=== PATIENT | female | born 1995 | race Caucasian/White ===

== ENCOUNTER → 2017-10-19 | Outpatient (CLI) | payer MEDICAID ==
[~2017-10-19] MED LIST: ALB0.5 INH; ALB6.7R INH; CEP250 PO; CETI-459 PO; FLUINH INH; PHEN240S3 PO; TRAZ50 PO; [UNRECOGNIZED DRUG - CODE] TOP
--- NOTE | 2017-10-19 16:32 | RADIOLOGY IMAGING REPORT ---
FACILITY: [facility] PATIENT NAME: Indira Agarwal : 1995 MR: [id number] V: [id number] EXAM DATE: ORDERING PHYSICIAN: [facility] TECHNOLOGIST: Location: [facility] Patient: Indira Agarwal : 1995 Visit/Account:[id number] Date of Sevice: 10/19/2017 EXAMINATION: Transvaginal pelvic ultrasound with duplex Doppler evaluation 10/19/2017 3:00 PM HISTORY: Confirm absence of IUP. 09/30/2017 COMPARISON STUDIES: Pelvic ultrasound 11/08/2013 FINDINGS: Uterus: 9.0 x 4.0 x 5.8 cm Myometrium: negative Endometrium: 10 mm thickness. No intrauterine gestational sac. No residual defined products of preg kaitlin. Cervix: negative Ovaries: right ovary 3.0 x 3.2 x 2.2 cm, left ovary 2.3 x 1.8 x 1.2 cm, simple and functional appeari ng cyst in the right ovary measures 1.8 x 1.7 x 2.1 cm. Blood flow is documented in each ovary by Doppler ultrasound. Adnexa: negative Free pelvic fluid: none IMPRESSION: Unremarkable transvaginal pelvic ultrasound. No intrauterine gestation or retained products of gesta tion are demonstrated. Report Dictated By: Bob Malave MD at 10/19/2017 4:24 PM Report E-Signed By: Bob Malave MD at 10/19/2017 4:27 PM WSN:[id number]
== END ==
LOC: US 14:57
PROVIDERS: ATTEND Obstetrics & Gynecology
DX: Z33.2 Encounter for elective termination of pregnancy (principal)
CPT/HCPCS: 76830

== ENCOUNTER 2018-03-14 18:40 | Emergency (ER) | payer SELFPAY ==
--- NOTE | 2018-03-14 18:52 | ER Report ---
History and Physical Time Seen By MD: 18:52 Hx. of Stated Complaint: Patient complains of abdominal pain that started 3 days prior. states she has been feeling "generally sick" for a few weeks now HPI/ROS CHIEF COMPLAINT: Abdominal pain HISTORY OF PRESENT ILLNESS: 22-year-old female patient presents to emergency room with complaint of abdominal pain. Patient states that she has not been feeling well for the past few weeks. She states she's had, some generalized abdominal pain over the last 3 days. She states that the pain seems to come and go. She states when the pain is there seems to radiate right up the middle of her abdomen. She denies having any fevers, chills but states she has had some nausea and vomiting. She states that she is not taking any medication for this. She states her last menses was January 19. She states that she did have intercourse one time during that time, however she did have an in September and states that her menstrual cycles have not been regular since that time. REVIEW OF SYSTEMS: Respiratory: No cough, no dyspnea. Cardiovascular: No chest pain, no palpitations. Gastrointestinal: As noted above Musculoskeletal: No back pain. Allergies: Coded Allergies: No Known Drug Allergies (Verified , 03/14/18) Uncoded Allergies: mushrooms (Allergy, Intermediate, NAUSEA/VOMITING, 12/23/09) HORSES (Allergy, Mild, 08/07/08) Home Meds Active Scripts Vits W-Ca,Fe,Fa(<1MG) ( VITAMINS) 1 Each Tablet, 1 EACH PO DAILY, #30 TAB Prov:[facility] 03/14/18 Nitrofurantoin Monohyd/M-Cryst (MACROBID 100 MG CAPSULE) 100 Mg Capsule, 100 MG PO BID, #12 CAPSULE Prov:[facility] 03/14/18 Reported Medications Fluticasone Propionate (Flovent Hfa 110 Mcg) 12 Gm Aer.w.adap, 1 PUFF INH BID, 0 Refills 12/30/09 Albuterol Sulfate (Proventil Hfa) 6.7 Gm Aer.w.adap, 1-2 PUFF INH, 0 Refills 12/30/09 Discontinued Reported Medications Cetirizine Hcl (Zyrtec) 10 Mg Tablet, 10 MG PO QDAY, 0 Refills 12/30/09 Mometasone Furoate (Elocon 0.1% Cream) 15 Gm Cr, 0 TOP BID, 0 Refills APPLY 12/30/09 Past Medical/Surgical History Patient has a past medical history of angina, asthma, pneumonia, eczema. Patient has a surgical history of oral surgery. Reviewed Nurses Notes: Yes Hx Smoking: No Smoking Status: Never Smoker Constitutional Vital Sign - Last 24 Hours 03/14/18 03/14/18 03/14/18 03/14/18 18:47 18:47 19:00 19:10 Temp 98.7 Pulse 86 62 Resp 15 B/P (MAP) 130/74 (92) 130/74 117/87 (97) Pulse Ox 96 96 O2 Delivery Room Air 03/14/18 03/14/18 03/14/18 03/14/18 19:30 19:35 19:50 20:00 Pulse 63 70 B/P (MAP) 106/69 (81) 111/62 (78) Pulse Ox 97 96 03/14/18 03/14/18 03/14/18 03/14/18 20:05 20:20 20:30 20:35 Pulse 65 73 62 B/P (MAP) 104/69 (81) Pulse Ox 97 97 97 03/14/18 20:40 Pulse ??? Pulse Ox 95 Physical Exam General Appearance: The patient is alert, has no immediate need for airway protection and no current signs of toxicity. Respiratory: Chest is non tender, lungs are clear to auscultation. Cardiac: regular rate and rhythm Gastrointestinal: Abdomen is soft and non tender, no masses, bowel sounds normal. Musculoskeletal: Neck: Neck is supple and non tender. Extremities have full range of motion and are non tender. Skin: No rashes or lesions. DIFFERENTIAL DIAGNOSIS: After history and physical exam differential diagnosis was considered for abdominal pain including but not limited to appendicitis, cholecystitis, gastritis and urinary tract infection. Included in the differential is . Medical Decision Making Data Points Result Diagram: 03/14/182 03/14/182 Laboratory Hematology Test 03/14/18 18:52 Red Blood Count 5.54 M/uL (4.17-5.56) Mean Corpuscular Volume 82.8 fL (80.0-96.0) Mean Corpuscular Hemoglobin 28.3 pg (26.0-33.0) Mean Corpuscular Hemoglobin Concent 34.2 g/dL (32.0-36.0) Red Cell Distribution Width 14.1 % (11.5-14.5) Mean Platelet Volume 9.4 fL (7.2-11.1) Neutrophils (%) (Auto) 67.2 % (39.4-72.5) Lymphocytes (%) (Auto) 23.6 % (17.6-49.6) Monocytes (%) (Auto) 7.3 % (4.1-12.4) Eosinophils (%) (Auto) 1.0 % (0.4-6.7) Basophils (%) (Auto) 0.9 % (0.3-1.4) Nucleated RBC Relative Count (auto) 0.0 /100WBC Neutrophils # (Auto) 8.7 K/uL (2.0-7.4) Lymphocytes # (Auto) 3.0 K/uL (1.3-3.6) Monocytes # (Auto) 0.9 K/uL (0.3-1.0) Eosinophils # (Auto) 0.1 K/uL (0.0-0.5) Basophils # (Auto) 0.1 K/uL (0.0-0.1) Nucleated RBC Absolute Count (auto) 0.00 K/uL Urine Color Yellow Urine Clarity Slightly-cloudy Urine pH 5.0 pH (4.8-9.5) Urine Specific [place] 1.024 Urine Protein Negative mg/dL (NEGATIVE) Urine Glucose (UA) Negative mg/dL (NEGATIVE) Urine Ketones Trace mg/dL (NEGATIVE) Urine Blood Negative (NEGATIVE) Urine Nitrite Negative (NEGATIVE) Urine Bilirubin Negative (NEGATIVE) Urine Urobilinogen Negative mg/dL (0.2-1.9) Urine Leukocyte Esterase Moderate (NEGATIVE) Urine RBC 1 /HPF (0-2/HPF) Urine WBC 19 /HPF (0-5/HPF) Urine Squamous Epithelial Cells Many /LPF (</=FEW) Urine Bacteria Negative /HPF (NONE-FEW) Urine Mucus Few /HPF (NONE-FEW) Sodium Level 137 mmol/L (137-145) Potassium Level 3.6 mmol/L (3.5-5.0) Chloride Level 101 mmol/L (98-107) Carbon Dioxide Level 21 mmol/L (22-31) Blood Urea Nitrogen 9 mg/dl (7-18) Creatinine 0.50 mg/dl (0.52-1.04) Glomerular Filtration Rate Calc > 60.0 Random Glucose 92 mg/dl (75-110) Calcium Level 9.5 mg/dl (8.4-10.2) Total Bilirubin 0.9 mg/dl (0.2-1.3) Aspartate Amino Transf (AST/SGOT) 18 U/L (0-35) Alanine Aminotransferase (ALT/SGPT) 24 U/L (0-56) Alkaline Phosphatase 52 U/L (0-126) C-Reactive Protein < 0.5 mg/dl (<1.0) Total Protein 8.7 g/dl (6.3-8.2) Albumin 4.7 g/dl (3.5-5.0) Amylase Level 106 U/L (0-110) Lipase 84 U/L (23-300) Human Chorionic Gonadotropin, Qual Positive (NEGATIVE) Chemistry Test 03/14/18 18:52 White Blood Count 12.9 k/uL (4.5-11.0) Red Blood Count 5.54 M/uL (4.17-5.56) Hemoglobin 15.7 g/dL (12.0-16.0) Hematocrit 45.9 % (34.0-47.0) Mean Corpuscular Volume 82.8 fL (80.0-96.0) Mean Corpuscular Hemoglobin 28.3 pg (26.0-33.0) Mean Corpuscular Hemoglobin Concent 34.2 g/dL (32.0-36.0) Red Cell Distribution Width 14.1 % (11.5-14.5) Platelet Count 334 K/uL (150-450) Mean Platelet Volume 9.4 fL (7.2-11.1) Neutrophils (%) (Auto) 67.2 % (39.4-72.5) Lymphocytes (%) (Auto) 23.6 % (17.6-49.6) Monocytes (%) (Auto) 7.3 % (4.1-12.4) Eosinophils (%) (Auto) 1.0 % (0.4-6.7) Basophils (%) (Auto) 0.9 % (0.3-1.4) Nucleated RBC Relative Count (auto) 0.0 /100WBC Neutrophils # (Auto) 8.7 K/uL (2.0-7.4) Lymphocytes # (Auto) 3.0 K/uL (1.3-3.6) Monocytes # (Auto) 0.9 K/uL (0.3-1.0) Eosinophils # (Auto) 0.1 K/uL (0.0-0.5) Basophils # (Auto) 0.1 K/uL (0.0-0.1) Nucleated RBC Absolute Count (auto) 0.00 K/uL Urine Color Yellow Urine Clarity Slightly-cloudy Urine pH 5.0 pH (4.8-9.5) Urine Specific [place] 1.024 Urine Protein Negative mg/dL (NEGATIVE) Urine Glucose (UA) Negative mg/dL (NEGATIVE) Urine Ketones Trace mg/dL (NEGATIVE) Urine Blood Negative (NEGATIVE) Urine Nitrite Negative (NEGATIVE) Urine Bilirubin Negative (NEGATIVE) Urine Urobilinogen Negative mg/dL (0.2-1.9) Urine Leukocyte Esterase Moderate (NEGATIVE) Urine RBC 1 /HPF (0-2/HPF) Urine WBC 19 /HPF (0-5/HPF) Urine Squamous Epithelial Cells Many /LPF (</=FEW) Urine Bacteria Negative /HPF (NONE-FEW) Urine Mucus Few /HPF (NONE-FEW) Glomerular Filtration Rate Calc > 60.0 Calcium Level 9.5 mg/dl (8.4-10.2) Total Bilirubin 0.9 mg/dl (0.2-1.3) Aspartate Amino Transf (AST/SGOT) 18 U/L (0-35) Alanine Aminotransferase (ALT/SGPT) 24 U/L (0-56) Alkaline Phosphatase 52 U/L (0-126) C-Reactive Protein < 0.5 mg/dl (<1.0) Total Protein 8.7 g/dl (6.3-8.2) Albumin 4.7 g/dl (3.5-5.0) Amylase Level 106 U/L (0-110) Lipase 84 U/L (23-300) Human Chorionic Gonadotropin, Qual Positive (NEGATIVE) Urinalysis Test 03/14/18 18:52 Urine Color Yellow Urine Clarity Slightly-cloudy Urine pH 5.0 pH (4.8-9.5) Urine Specific [place] 1.024 Urine Protein Negative mg/dL (NEGATIVE) Urine Glucose (UA) Negative mg/dL (NEGATIVE) Urine Ketones Trace mg/dL (NEGATIVE) Urine Blood Negative (NEGATIVE) Urine Nitrite Negative (NEGATIVE) Urine Bilirubin Negative (NEGATIVE) Urine Urobilinogen Negative mg/dL (0.2-1.9) Urine Leukocyte Esterase Moderate (NEGATIVE) Urine RBC 1 /HPF (0-2/HPF) Urine WBC 19 /HPF (0-5/HPF) Urine Squamous Epithelial Cells Many /LPF (</=FEW) Urine Bacteria Negative /HPF (NONE-FEW) Urine Mucus Few /HPF (NONE-FEW) ED Course/Re-evaluation ED Course Patient was admitted to an exam room, history and physical were obtained. Differential diagnoses were considered. On examination lungs are clear, heart is regular, abdomen is soft nontender. A CBC, CMP, urinalysis, hCG were obtained. Patient had a white count of 12.9 with no left shift, CMP is unremarkable, urinalysis did show a moderate leukocyte esterase with 19 white blood cells per high-power field. Patient was positive for . I discussed the findings with the patient. As I was discussing the findings I asked her about the father. She states they're not in a relationship and she states that he is an older gentleman who helps her out. She states that she talks to him only when she needs help. She states that they had intercourse on February 01, with her stating that he had taken her to see her father, had brought her food and she did feel obligated. I asked her if she would feel comfortable with the [facility] nurse talking with her. She states that she did. Tatyana Izquierdo RN did speak with the patient and discussed resources for her. She states that she does feel better. We will go ahead and treat her with antibiotics for tonight and tomorrow morning, a prescription for the remainder of the antibiotics for sent into pharmacy. Also sent and vitamins I would like her to get started on that tomorrow. I discussed this with the patient who verbalized understanding and agreement with plan. Decision to Disposition Date: Mar 14, 2018 Decision to Disposition Time: 20:33 Depart Departure Latest Vital Signs Vital Signs Date Time Temp Pulse Resp B/P (MAP) Pulse Ox O2 Delivery O2 Flow Rate FiO2 03/14/18 20:40 ??? 95 03/14/18 20:30 104/69 (81) 03/14/18 18:47 98.7 15 Room Air Impression: Primary Impression: UTI (urinary tract infection) Additional Impression: Condition: Improved Disposition: HOME OR SELF-CARE Referrals: STUART PRADO MD (PCP) New Scripts Vits W-Ca,Fe,Fa(<1MG) ( VITAMINS) 1 Each Tablet 1 EACH PO DAILY, #30 TAB Prov: COREYPJASIAREBECCA RODRÍGUEZ 03/14/18 Nitrofurantoin Monohyd/M-Cryst (MACROBID 100 MG CAPSULE) 100 Mg Capsule 100 MG PO BID, #12 CAPSULE Prov: [facility] 03/14/18 Patient Instructions: Urinary Tract Infection in (ED) Additional Instructions: Increase fluid intake. Get plenty of rest. Follow up with your [facility] in the next week. Return to the ER if condition worsens. Take your medications as prescribed. Problem Qualifiers Primary Impression: UTI (urinary tract infection) Urinary tract infection type: acute cystitis Hematuria presence: without hematuria Qualified Codes: N30.00 - Acute cystitis without hematuria Additional Impression: Weeks of gestation: less than 8 weeks Qualified Codes: Z3A.01 - Less than 8 weeks gestation of [facility] Mar 14, 2018 18:52
[2018-03-14] MEDS ORDERED: NS(*) 0.9% 1000 ML BAG 1,000 ML IV ONE (19:01)
[2018-03-14] MEDS ORDERED: ONDANSETRON 4 MG/2 ML VIAL IVP ONE (19:05)
[2018-03-14 19:08] LABS: PLATELET COUNT, AUTOMATED 334 K/uL (150-450)
[2018-03-14 20:30] VITALS: BP 104/69
[2018-03-14] MEDS ORDERED: PREN-127 PO (20:32)
[2018-03-14] MEDS ORDERED: NITR-105 PO (20:32)
[2018-03-14] MEDS ORDERED: NITROFURANTOIN MONO 100 MG PO ONE (20:40)
== END 2018-03-14 21:34 | disposition home or self-care (01) ==
LOC: ER 18:58
DX: N30.00 Acute cystitis without hematuria (principal); Z33.1 Pregnant state, incidental
CPT/HCPCS: 81001; 82150; 83690; 84703; 85025; 86140; 87088; 96361; 96374; 99284; J2405; J7030; 82040; 82247; 82310; 82374; 82435; 82565; 82947; 84075; 84132; 84155; 84295; 84450; 84460; 84520